=== PATIENT | female | born 1995 | race African-American/Black ===

== ENCOUNTER 2017-05-28 16:20 | Emergency (ER) | payer OTHER ==
[~2017-05-28] VITALS: Ht 177.8 cm; Wt 109.0 kg
[~2017-05-28 16:20] MED LIST: AMOXICILLIN500 MG OR; AMOXICILLIN500 MG PO; BIRTH CONTROL PILLS; DENIES CURRENT MEDS; FIORICET PO; FLEXERIL PO; FLUZONE SPLT1 M1 IM; GARAMYCIN0.31 OP; LORTAB 5/3255 MG PO; MACRODANTIN100 MG OR; METROGEL VAG0.75 % VA; METRONIDAZOL500 MG PO; NAPROSYN500 MG PO; PRENATA3 OR; PYRIDIUM200 MG PO; TUBERSOL5 MG/0.1 M ID; ULTRAM50 M1 PO; ZITHROMAX250 MG PO
[2017-05-28] MEDS ORDERED: CEPHALEXIN500 MG PO (16:36)
[2017-05-28] MEDS ORDERED: LORTAB 5-325 MG1 TAB PO (16:37)
[2017-05-28 17:00] VITALS: BP 116/75
== END 2017-05-28 17:00 | disposition home or self-care (01) | DRG 950 ==
LOC: ED 16:20
DX: S51.011D Laceration without foreign body of right elbow, subsequent encounter (principal); F17.210 Nicotine dependence, cigarettes, uncomplicated; X58.XXXD Exposure to other specified factors, subsequent encounter

== ENCOUNTER 2019-05-13 09:29 | Emergency (ER) | payer OTHER ==
[~2019-05-13] VITALS: Ht 177.8 cm; Wt 113.6 kg
[~2019-05-13 09:29] MED LIST changes: +CEPHALEXIN500 MG PO; +LORTAB 5-325 MG1 TAB PO
[2019-05-13 10:11] LABS: URINE BILIRUBIN - DIPSTICK NEGATIVE (NEGATIVE); URINE BLOOD DIPSTICK NEGATIVE (NEGATIVE); URINE COLOR YELLOW; URINE GLUCOSE - DIPSTICK NEGATIVE (NEGATIVE); URINE KETONE NEGATIVE (NEGATIVE); URINE LEUK ESTERASE NEGATIVE (NEGATIVE); URINE NITRITE - DIPSTICK NEGATIVE (Negative); URINE PROTEIN - DIPSTICK TRACE mg/dL (NEG-TRACE); URINE SPECIFIC GRAVITY >=1.030
[2019-05-13 10:26] LABS: HEMATOCRIT 38.7 % (37.0-47.0); HEMOGLOBIN 12.5 g/dl (12.0-16.0); IMMATURE GRANULOCYTES 0.4 % (0.0-5.0); MEAN CORPUSCULAR HGB 27.8 pG CALC (26.0-32.0); MEAN CORPUSCULAR HGB CONC 32.3 g/L CALC (32.0-36.0); NEUT# 5.54 thou/uL (2.00-7.15); RED BLOOD COUNT 4.5 mill/uL (4.20-5.60); RED CELL DISTRI WIDTH 15.1 % (11.5-15.5)
[2019-05-13 10:45] LABS: ALBUMIN 4.1 g/dL (3.2-5.0); ALKALINE PHOSPHATASE 82 u/l (38-126); BUN 8 mg/dL (7-17); BUN/CREATININE RATIO 15 (12-20 (CALC)); CHLORIDE 108 mmol/l (95-108); CREATININE 0.6 mg/dL (0.5-1.0); GFR > 60 ML/MIN (>=60 (CALC)); GFR FOR AFR.AMER. > 60 ML/MIN (>=60 (CALC)); LIPASE 80 u/l (23-300); POTASSIUM 3.8 mmol/l (3.5-5.1); SGOT/AST 20 u/l (14-36); SODIUM 138 mmol/l (137-146); TOTAL PROTEIN 7.5 g/dL (6.3-8.2)
[2019-05-13 10:51] LABS: ANION GAP 13 (6-22 (CALC)); BILIRUBIN, TOTAL 0.4 mg/dL (0.0-1.4); CARBON DIOXIDE 21 mmol/l (22-30)
[2019-05-13] MEDS ORDERED: PENICILLN VK500 M1 PO (11:11)
[2019-05-13 11:15] VITALS: BP 116/74
== END 2019-05-13 11:15 | disposition home or self-care (01) ==
LOC: ED 09:29
PROVIDERS: Family Medicine
DX: M84.48XA Pathological fracture, other site, initial encounter for fracture (principal); O26.891 Other specified pregnancy related conditions, first trimester; R10.30 Lower abdominal pain, unspecified; O99.331 Smoking (tobacco) complicating pregnancy, first trimester; F17.210 Nicotine dependence, cigarettes, uncomplicated; Z3A.01 Less than 8 weeks gestation of pregnancy

== ENCOUNTER 2019-05-25 10:13 | Emergency (ER) | payer OTHER ==
[~2019-05-25] VITALS: Ht 177.8 cm; Wt 100.0 kg
[~2019-05-25 10:13] MED LIST changes: +PENICILLN VK500 M1 PO
[2019-05-25] MEDS ORDERED: POLYTRIM OD (10:36)
[2019-05-25 11:05] LABS: URINE BILIRUBIN - DIPSTICK NEGATIVE (NEGATIVE); URINE BLOOD DIPSTICK NEGATIVE (NEGATIVE); URINE COLOR YELLOW; URINE GLUCOSE - DIPSTICK NEGATIVE (NEGATIVE); URINE KETONE NEGATIVE (NEGATIVE); URINE LEUK ESTERASE NEGATIVE (NEGATIVE); URINE NITRITE - DIPSTICK NEGATIVE (Negative); URINE PROTEIN - DIPSTICK NEGATIVE (NEG-TRACE); URINE SPECIFIC GRAVITY 1.015; URINE UROBILINOGEN - DIPSTICK 0.2 E.U./dL (0.2)
[2019-05-25 11:06] LABS: HEMATOCRIT 38.3 % (37.0-47.0); HEMOGLOBIN 12.5 g/dl (12.0-16.0); IMMATURE GRANULOCYTES 0.3 % (0.0-5.0); MEAN CELL VOLUME 85.3 fL CALC (80.0-100.0); MEAN CORPUSCULAR HGB 27.8 pG CALC (26.0-32.0); MEAN CORPUSCULAR HGB CONC 32.6 g/L CALC (32.0-36.0); NEUT# 3.76 thou/uL (2.00-7.15); RED BLOOD COUNT 4.49 mill/uL (4.20-5.60); RED CELL DISTRI WIDTH 14.7 % (11.5-15.5)
[2019-05-25 11:16] LABS: ALBUMIN 3.9 g/dL (3.2-5.0); ALKALINE PHOSPHATASE 69 u/l (38-126); ANION GAP 11 (6-22 (CALC)); BILIRUBIN, TOTAL 0.4 mg/dL (0.0-1.4); BUN 6 mg/dL (7-17); BUN/CREATININE RATIO 11 (12-20 (CALC)); CARBON DIOXIDE 24 mmol/l (22-30); CHLORIDE 106 mmol/l (95-108); CREATININE 0.5 mg/dL (0.5-1.0); GFR > 60 ML/MIN (>=60 (CALC)); GFR FOR AFR.AMER. > 60 ML/MIN (>=60 (CALC)); LIPASE 57 u/l (23-300); POTASSIUM 4.1 mmol/l (3.5-5.1); SGOT/AST 24 u/l (14-36); SODIUM 137 mmol/l (137-146); TOTAL PROTEIN 7.4 g/dL (6.3-8.2)
[2019-05-25 12:22] LABS: BETA-HCG, QUANT(RESULT NUMBER) 40388 mIU/mL
[2019-05-25 13:52] VITALS: BP 126/82
== END 2019-05-25 14:00 | disposition home or self-care (01) ==
LOC: ED 10:13
PROVIDERS: Family Medicine
DX: O26.891 Other specified pregnancy related conditions, first trimester (principal); R10.32 Left lower quadrant pain; R10.31 Right lower quadrant pain; Z3A.01 Less than 8 weeks gestation of pregnancy; H57.89 Other specified disorders of eye and adnexa

== ENCOUNTER 2019-08-21 21:48 | Emergency (ER) | payer OTHER ==
[~2019-08-21] VITALS: Ht 177.8 cm; Wt 114.6 kg
[~2019-08-21 21:48] MED LIST changes: +POLYTRIM OD
[2019-08-21] MEDS ORDERED: PRENATA4 PO (22:14)
[2019-08-21 23:03] LABS: HEMATOCRIT 36.3 % (37.0-47.0); HEMOGLOBIN 12.2 g/dl (12.0-16.0); IMMATURE GRANULOCYTES 0.3 % (0.0-5.0); MEAN CORPUSCULAR HGB 28.2 pG CALC (26.0-32.0); MEAN CORPUSCULAR HGB CONC 33.6 g/L CALC (32.0-36.0); NEUT# 4.74 thou/uL (2.00-7.15); RED BLOOD COUNT 4.32 mill/uL (4.20-5.60); RED CELL DISTRI WIDTH 14.2 % (11.5-15.5)
[2019-08-21 23:05] LABS: URINE BLOOD DIPSTICK NEGATIVE (NEGATIVE); URINE COLOR YELLOW; URINE GLUCOSE - DIPSTICK NEGATIVE (NEGATIVE); URINE KETONE >=80 mg/dL (NEGATIVE); URINE LEUK ESTERASE NEGATIVE (NEGATIVE); URINE NITRITE - DIPSTICK NEGATIVE (Negative); URINE PROTEIN - DIPSTICK TRACE mg/dL (NEG-TRACE); URINE SPECIFIC GRAVITY 1.025; URINE UROBILINOGEN - DIPSTICK 0.2 E.U./dL (0.2)
[2019-08-21 23:07] LABS: URINE BILIRUBIN - DIPSTICK SMALL (NEGATIVE)
[2019-08-21 23:19] LABS: ALBUMIN 3.8 g/dL (3.2-5.0); ALKALINE PHOSPHATASE 72 u/l (38-126); AMYLASE 53 u/l (30-110); ANION GAP 11 (6-22 (CALC)); BILIRUBIN, TOTAL 0.4 mg/dL (0.0-1.4); BUN 6 mg/dL (7-17); BUN/CREATININE RATIO 11 (12-20 (CALC)); CARBON DIOXIDE 22 mmol/l (22-30); CHLORIDE 106 mmol/l (95-108); CREATININE 0.5 mg/dL (0.5-1.0); GFR > 60 ML/MIN (>=60 (CALC)); GFR FOR AFR.AMER. > 60 ML/MIN (>=60 (CALC)); LIPASE 85 u/l (23-300); POTASSIUM 3.6 mmol/l (3.5-5.1); SGOT/AST 26 u/l (14-36); SODIUM 136 mmol/l (137-146); TOTAL PROTEIN 7.3 g/dL (6.3-8.2)
[2019-08-21] MEDS ORDERED: ZOFRAN4 MG/TAB PO (23:42)
[2019-08-21 23:57] VITALS: BP 122/71
== END 2019-08-22 00:05 | disposition home or self-care (01) ==
LOC: ED 21:48
PROVIDERS: Family Medicine
DX: O99.612 Diseases of the digestive system complicating pregnancy, second trimester (principal); K52.9 Noninfective gastroenteritis and colitis, unspecified; O99.332 Smoking (tobacco) complicating pregnancy, second trimester; F17.200 Nicotine dependence, unspecified, uncomplicated; Z3A.19 19 weeks gestation of pregnancy

== ENCOUNTER 2019-09-21 14:11 | Emergency (ER) | payer OTHER ==
[~2019-09-21] VITALS: Ht 177.8 cm; Wt 118.0 kg
[~2019-09-21 14:11] MED LIST changes: +PRENATA4 PO; +ZOFRAN4 MG/TAB PO
[2019-09-21 15:14] VITALS: BP 121/64
== END 2019-09-21 15:14 | disposition home or self-care (01) | DRG 552 ==
LOC: ED 14:11
DX: M54.5 Low back pain (principal); V43.62XA Car passenger injured in collision with other type car in traffic accident, initial encounter; Z33.1 Pregnant state, incidental

== ENCOUNTER 2019-12-28 | Emergency (ER) | payer OTHER ==
[2019-12-28 06:41] LABS: HEMATOCRIT 33.7 % (37.0-47.0); HEMOGLOBIN 11.3 g/dl (12.0-16.0); IMMATURE GRANULOCYTES 0.5 % (0.0-5.0); MEAN CELL VOLUME 84.7 fL CALC (80.0-100.0); MEAN CORPUSCULAR HGB 28.4 pG CALC (26.0-32.0); MEAN CORPUSCULAR HGB CONC 33.5 g/L CALC (32.0-36.0); NEUT# 5.62 thou/uL (2.00-7.15); RED BLOOD COUNT 3.98 mill/uL (4.20-5.60)
[2019-12-28 06:56] LABS: ALBUMIN 3.8 g/dL (3.2-5.0); ANION GAP 11 (6-22 (CALC)); BILIRUBIN, TOTAL 0.3 mg/dL (0.0-1.4); BUN 4 mg/dL (7-17); BUN/CREATININE RATIO 10 (12-20 (CALC)); CARBON DIOXIDE 19 mmol/l (22-30); CHLORIDE 109 mmol/l (95-108); CREATININE 0.5 mg/dL (0.5-1.0); GFR > 60 ML/MIN (>=60 (CALC)); GFR FOR AFR.AMER. > 60 ML/MIN (>=60 (CALC)); POTASSIUM 3.8 mmol/l (3.5-5.1); SGOT/AST 21 u/l (14-36); SODIUM 135 mmol/l (137-146); TOTAL PROTEIN 7.4 g/dL (6.3-8.2)
[2019-12-28 06:57] LABS: ALKALINE PHOSPHATASE 122 u/l (38-126)
== END 2019-12-28 07:21 ==
DX: O26.893 Other specified pregnancy related conditions, third trimester (principal); R10.30 Lower abdominal pain, unspecified; Z3A.37 37 weeks gestation of pregnancy

== ENCOUNTER 2020-04-26 22:31 | Emergency (ER) | payer OTHER ==
[~2020-04-26] VITALS: Ht 182.9 cm; Wt 109.1 kg
[2020-04-26 23:10] VITALS: BP 132/77
== END 2020-04-26 23:10 | disposition home or self-care (01) ==
LOC: ED 22:31
DX: T16.2XXA Foreign body in left ear, initial encounter (principal); X58.XXXA Exposure to other specified factors, initial encounter

== ENCOUNTER 2020-05-01 20:56 | Emergency (ER) | payer OTHER ==
[~2020-05-01] VITALS: Ht 182.9 cm; Wt 110.9 kg
[2020-05-01 23:25] VITALS: BP 171/61
== END 2020-05-01 23:25 | disposition home or self-care (01) | DRG 923 ==
LOC: ED 20:56
DX: Z04.1 Encounter for examination and observation following transport accident (principal)

== ENCOUNTER 2020-12-31 13:24 | Emergency (ER) | payer OTHER ==
[~2020-12-31] VITALS: Ht 182.9 cm; Wt 115.0 kg
[2020-12-31 16:23] VITALS: BP 133/68
== END 2020-12-31 16:23 | disposition left against medical advice (07) ==
LOC: ED 13:24
DX: M54.5 Low back pain (principal); Z91.19 Patient's noncompliance with other medical treatment and regimen; V43.62XA Car passenger injured in collision with other type car in traffic accident, initial encounter

== ENCOUNTER 2022-02-28 20:38 | Emergency (ER) | payer OTHER ==
[~2022-02-28] VITALS: Ht 182.9 cm; Wt 121.0 kg
[2022-02-28 20:43] VITALS: BP 127/83
[2022-02-28 21:01] VITALS: BP 124/90
[2022-02-28 21:31] VITALS: BP 96/54
[2022-02-28] MEDS ORDERED: TAM75CAP PO (22:06)
[2022-02-28 22:11] VITALS: BP 96/54
== END 2022-02-28 22:25 | disposition home or self-care (01) ==
LOC: ED 20:38
DX: J10.1 Influenza due to other identified influenza virus with other respiratory manifestations (principal)

== ENCOUNTER 2023-01-05 19:43 | Emergency (ER) | payer OTHER ==
[~2023-01-05] VITALS: Ht 182.9 cm; Wt 119.6 kg
[~2023-01-05 19:43] MED LIST changes: +TAM75CAP PO
[2023-01-05] MEDS ORDERED: ZYRTEC10 MG PO (20:43)
[2023-01-05 20:55] VITALS: BP 132/92
== END 2023-01-05 20:57 | disposition home or self-care (01) ==
LOC: ED 19:43
DX: J32.9 Chronic sinusitis, unspecified (principal); Z20.822 Contact with and (suspected) exposure to COVID-19